=== PATIENT | female | born 1985 | race Caucasian/White ===

== ENCOUNTER 2019-03-09 18:03 | Emergency (ER) | payer MEDICAID ==
[2019-03-09] MEDS ORDERED: Prochlorperazine 5 MG Tab PO ONE (18:04)
[2019-03-09] MEDS ORDERED: Acetaminophen/HYDROcodone 325-5 MG Tab PO ONE (18:04)
[2019-03-09] MEDS ORDERED: Sodium Chloride 0.9% 10 ML Syringe FLUSH PRN (18:34)
--- NOTE | 2019-03-09 18:34 | EDM.PDOC ---
ED HPI GENERAL MEDICAL PROBLEM - General Chief Complaint: Gastrointestinal Problem Stated Complaint: CONSTIPATION Time Seen by Provider: 03/09/19 18:18 Source of Information: Reports: Patient History Limitations: Reports: No Limitations - History of Present Illness INITIAL COMMENTS - FREE TEXT/NARRATIVE: 33-year-old female with onset of crampy lower abdominal pain this morning that has progressively worsened. It now is generalized all over her abdomen. She also has pain in her lower back as well. She has had nausea with vomiting 2. Her last bowel movement was 2 days ago and it was small and hard. She does have a history of constipation problems and she has taken several medications for constipation today including Ex-Lax, MiraLAX and mag citrate. She was having the pain and nausea prior to taking these medications. She has had no fevers or chills. She's had no dysuria or hematuria. She has had really no appetite. She has never had pain like this before. The pain is a 9/10. It is cramping and sharp. It does seem to wax and wane but there is a constant underlying pain as well. It does seem to emanate from her lower abdomen. Her last menstrual period was a month ago but her menses is irregular. Denies any possibility of . She was hospitalized in [place] about 2 weeks ago for a respiratory infection. She still has a cough related to that but no difficulty breathing. There are no other associated signs or symptoms. There are no other modifying factors. 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 Medication(s) (As noted above) abdomen Pain Score (Numeric/FACES): 9 - Related Data Allergies Allergy/AdvReac Type Severity Reaction Status Date / Time bee venom protein (honey bee) Allergy Hives Verified 03/09/19 18:16 Penicillins Allergy Hives Verified 03/09/19 18:16 Home Meds: Home Meds QUEtiapine [SEROquel] 300 mg PO BEDTIME 03/09/19 [History] Sertraline [Zoloft] 200 mg PO DAILY 03/09/19 [History] Sulfamethoxazole/Trimethoprim [Bactrim Ds Tablet] 1 each PO BID 10 Days #20 tablet 03/09/19 [Rx] busPIRone [Buspar] 15 mg PO DAILY 03/09/19 [History] metroNIDAZOLE [Flagyl] 500 mg PO BID 10 Days #20 tab 03/09/19 [Rx] traZODone 200 mg PO DAILY 03/09/19 [History] Past Medical History Psychiatric History: Reports: Anxiety, Depression - Past Surgical History GI Surgical History: Reports: Appendectomy Musculoskeletal Surgical History: Reports: ORIF (Of left elbow) Social & Family History - Tobacco Use Smoking Status *Q: Current Every Day Smoker Years of Tobacco use: 17 Packs/Tins Daily: 0.5 - Caffeine Use Caffeine Use: Reports: Energy Drinks, Soda - Alcohol Use Alcohol Use History: No - Recreational Drug Use Recreational Drug Use: No - Living Situation & Occupation Occupation: Employed (She does surveys over the phone) Social History Comment: She is here with her father. ED ROS GENERAL - Review of Systems Review Of Systems: See Below Constitutional: Reports: No Symptoms HEENT: Reports: No Symptoms Respiratory: Reports: Cough Cardiovascular: Reports: No Symptoms Endocrine: Reports: No Symptoms GI/Abdominal: Reports: Abdominal Pain, Nausea, Vomiting : Reports: No Symptoms Musculoskeletal: Reports: Back Pain (Lower back pain) Skin: Reports: No Symptoms Neurological: Reports: No Symptoms Hematologic/Lymphatic: Reports: No Symptoms Immunologic: Reports: No Symptoms ED EXAM, GI/ABD - Physical Exam Exam: See Below Exam Limited By: No Limitations General Appearance: Alert, Moderate Distress, Obese Eyes: Bilateral: Normal Appearance, EOMI Ears: Normal External Exam Nose: Normal Inspection, Normal Mucosa, No Blood Throat/Mouth: Normal Voice, No Airway Compromise, Other (Dry mucous membranes) Head: Atraumatic, Normocephalic Neck: Normal Inspection, Supple, Non-Tender, Full Range of Motion Respiratory/Chest: No Respiratory Distress, Lungs Clear, Normal Breath Sounds, No Accessory Muscle Use, Chest Non-Tender Cardiovascular: Normal Peripheral Pulses, Regular Rate, Rhythm, No JVD GI/Abdominal Exam: Soft, No Mass, Tender (Diffusely tender but more so in her lower abdomen), Abnormal Bowel Sounds (Bowel sounds are somewhat increased). No : Guarding, Rebound Back Exam: Normal Inspection Extremities: Normal Inspection, Normal Range of Motion, Non-Tender, No Pedal Edema, Normal Capillary Refill Neurological: Alert, Oriented, CN II-XII Intact, Normal Cognition, No Motor/ Sensory Deficits Skin Exam: Warm, Dry, Intact, Normal Color Course - Vital Signs Last Recorded V/S: Last Vital Signs Temp 37.2 C 03/09/19 18:15 Pulse 95 03/09/19 18:15 Resp 16 03/09/19 18:15 BP 121/81 03/09/19 18:15 Pulse Ox 97 03/09/19 18:15 - Orders/Labs/Meds Orders: Active Orders 24 hr Category Date Time Status Abdomen Pelvis w Cont [CT] Stat Exams 03/09/19 20:14 Taken Chest 2V [CR] Stat Exams 03/09/19 19:35 Taken Sodium Chloride 0.9% [Normal Saline] 1,000 ml Med 03/09/19 20:15 Active IV ASDIRECTED Sodium Chloride 0.9% [Saline Flush] Med 03/09/19 18:34 Active 10 ml FLUSH ASDIRECTED PRN Peripheral IV Insertion Adult [OM.PC] Routine Oth 03/09/19 18:34 Ordered Medication Orders Sodium Chloride (Normal Saline) 1,000 mls @ 200 mls/hr IV ASDIRECTED CAROLINE Last Admin: 03/09/19 20:50 Dose: 200 mls/hr Sodium Chloride (Saline Flush) 10 ml FLUSH ASDIRECTED PRN PRN Reason: Keep Vein Open Last Admin: 03/09/19 18:45 Dose: 10 ml Labs: Laboratory Tests 03/09/19 03/09/19 03/09/19 Range/Units 18:34 18:34 18:50 WBC 15.2 H (4.5-12.0) X10-3/uL RBC 5.07 (3.23-5.20) x10(6)uL Hgb 15.1 (11.5-15.5) g/dL Hct 44.1 (30.0-51.3) % MCV 86.9 (80-96) fL MCH 29.8 (27.7-33.6) pg MCHC 34.2 (32.2-35.4) g/dL RDW 14.8 (11.5-15.5) % Plt Count 318 (125-369) X10(3)uL MPV 9.1 (7.4-10.4) fL Neut % (Auto) 75.8 (46-82) % Lymph % (Auto) 18.5 (13-37) % [place] % (Auto) 5.4 (4-12) % Eos % (Auto) 0 L (1.0-5.0) % Baso % (Auto) 0 (0-2) % Neut # (Auto) 11.6 H (1.6-8.3) # Lymph # (Auto) 2.8 (0.6-5.0) # [place] # (Auto) 0.8 (0.0-1.3) # Eos # (Auto) 0.0 (0.0-0.8) # Baso # (Auto) 0.0 (0.0-0.2) # Sodium (135-145) mmol/L Potassium (3.5-5.3) mmol/L Chloride (100-110) mmol/L Carbon Dioxide (21-32) mmol/L BUN (7-18) mg/dL Creatinine (0.55-1.02) mg/dL Est Cr Clr Drug Dosing mL/min Estimated GFR (MDRD) (>60) BUN/Creatinine Ratio (9-20) Glucose (80-116) mg/dL Calcium (8.6-10.2) mg/dL Total Bilirubin (0.1-1.3) mg/dL AST (5-25) IU/L ALT (12-36) U/L Alkaline Phosphatase (56-112) IU/L C-Reactive Protein (0.5-0.9) mg/dL Total Protein (6.0-8.0) g/dL Albumin (3.5-5.2) g/dL Globulin g/dL Albumin/Globulin Ratio Amylase (25-115) U/L Urine Color Yellow (YELLOW) Urine Appearance Clear (CLEAR) Urine pH 6.0 (5.0-6.5) Ur Specific [place] 1.020 (1.010-1.025) Urine Protein Negative (NEGATIVE) mg/dL Urine Glucose (UA) Normal (NORMAL) mg/dL Urine Ketones Negative (NEGATIVE) mg/dL Urine Occult Blood Negative (NEGATIVE) Urine Nitrite Negative (NEGATIVE) Urine Bilirubin Small H (NEGATIVE) Urine Urobilinogen 1 H (NEGATIVE) mg/dL Ur Leukocyte Esterase Small H (NEGATIVE) Urine RBC 0-5 (0-5) Urine WBC 0-5 (0-5) Ur Squamous Epith Cells Occasional (NS,R,O) Amorphous Sediment Few Urine Bacteria Rare H (NS) Urine HCG, Qual Negative (NEGATIVE) 03/09/19 03/09/19 Range/Units 18:50 18:50 WBC (4.5-12.0) X10-3/uL RBC (3.23-5.20) x10(6)uL Hgb (11.5-15.5) g/dL Hct (30.0-51.3) % MCV (80-96) fL MCH (27.7-33.6) pg MCHC (32.2-35.4) g/dL RDW (11.5-15.5) % Plt Count (125-369) X10(3)uL MPV (7.4-10.4) fL Neut % (Auto) (46-82) % Lymph % (Auto) (13-37) % [place] % (Auto) (4-12) % Eos % (Auto) (1.0-5.0) % Baso % (Auto) (0-2) % Neut # (Auto) (1.6-8.3) # Lymph # (Auto) (0.6-5.0) # [place] # (Auto) (0.0-1.3) # Eos # (Auto) (0.0-0.8) # Baso # (Auto) (0.0-0.2) # Sodium 138 (135-145) mmol/L Potassium 3.8 (3.5-5.3) mmol/L Chloride 101 (100-110) mmol/L Carbon Dioxide 27 (21-32) mmol/L BUN 12 (7-18) mg/dL Creatinine 1.0 (0.55-1.02) mg/dL Est Cr Clr Drug Dosing 73.51 mL/min Estimated GFR (MDRD) > 60 (>60) BUN/Creatinine Ratio 12.0 (9-20) Glucose 103 (80-116) mg/dL Calcium 8.8 (8.6-10.2) mg/dL Total Bilirubin 0.3 (0.1-1.3) mg/dL AST 13 (5-25) IU/L ALT 25 (12-36) U/L Alkaline Phosphatase 86 (56-112) IU/L C-Reactive Protein 2.3 H (0.5-0.9) mg/dL Total Protein 7.7 (6.0-8.0) g/dL Albumin 3.6 (3.5-5.2) g/dL Globulin 4.1 g/dL Albumin/Globulin Ratio 0.9 Amylase 50 (25-115) U/L Urine Color (YELLOW) Urine Appearance (CLEAR) Urine pH (5.0-6.5) Ur Specific [place] (1.010-1.025) Urine Protein (NEGATIVE) mg/dL Urine Glucose (UA) (NORMAL) mg/dL Urine Ketones (NEGATIVE) mg/dL Urine Occult Blood (NEGATIVE) Urine Nitrite (NEGATIVE) Urine Bilirubin (NEGATIVE) Urine Urobilinogen (NEGATIVE) mg/dL Ur Leukocyte Esterase (NEGATIVE) Urine RBC (0-5) Urine WBC (0-5) Ur Squamous Epith Cells (NS,R,O) Amorphous Sediment Urine Bacteria (NS) Urine HCG, Qual (NEGATIVE) Meds: Medications Generic Name Dose Route Start Last Admin Trade Name Freq PRN Reason Stop Dose Admin Sodium Chloride 1,000 mls @ 200 mls/hr 03/09/19 20:15 03/09/19 20:50 Normal Saline IV 200 mls/hr ASDIRECTED CAROLINE Administration Sodium Chloride 10 ml 03/09/19 18:34 03/09/19 18:45 Saline Flush FLUSH 10 ml ASDIRECTED PRN Administration Keep Vein Open Discontinued Medications Generic Name Dose Route Start Last Admin Trade Name Freq PRN Reason Stop Dose Admin Fentanyl 50 mcg 03/09/19 18:35 03/09/19 18:55 Sublimaze IVPUSH 03/09/19 18:36 50 mcg ONETIME ONE Administration Promethazine HCl 25 mg/ Sodium 51 mls @ 200 mls/hr 03/09/19 18:36 03/09/19 18 :57 Chloride IV 03/09/19 18:51 200 mls/hr ONETIME ONE Administration Sodium Chloride 1,000 mls @ 999 mls/hr 03/09/19 18:35 03/09/19 18:50 Normal Saline IV 03/09/19 19:35 999 mls/hr .BOLUS ONE Administration Iopamidol 114 ml 03/09/19 20:22 03/09/19 20:54 Isovue-370 (76%) IV 03/09/19 20:23 114 ml ONETIME ONE Administration Metronidazole 500 mg 03/09/19 21:24 03/09/19 21:32 Flagyl PO 03/09/19 21:25 500 mg ONETIME ONE Administration Trimethoprim/Sulfamethoxazole 1 tab 03/09/19 21:24 03/09/19 21:32 Septra Ds PO 03/09/19 21:25 1 tab ONETIME ONE Administration - Radiology Interpretation Free Text/Narrative:: Chest x-ray PA and lateral shows no acute disease. CT scan of abdomen and pelvis shows mild wall thickening of a long segment of the mid descending colon that is consistent with mild infectious/inflammatory colitis. - Re-Assessments/Exams Free Text/Narrative Re-Assessment/Exam: 03/09/19 20:10: Patient has received 1 L bolus of normal saline, fentanyl 50 g and Phenergan 25 mg IV. She has just had a loose stool and her abdominal pain is less. She has remained vitally stable and afebrile. She still has abdominal pain on palpation but maintains with a soft abdomen. Her urinalysis shows no evidence of an acute infectious process. Her chest x-ray shows no acute disease. Her laboratory tests show an elevated white blood cell count and an elevated CRP. Therefore, I am sending her over for a CT of her abdomen and pelvis with IV contrast. I discussed this with the patient and she is in agreement with this plan. I will continue IV fluid hydration with normal saline. 03/09/19 21:25: CT scan of the abdomen and pelvis showed infectious colitis of the mid descending colon. The patient is much improved after IV fluids. I will place patient on Bactrim and Flagyl by mouth twice daily for the next 10 days. She is to increase her fluid intake. I will also provide her with a prescription for nausea and a take home pack of hydrocodone for more severe pain. She is to follow-up with her primary doctor this next week for recheck. I have cautioned her against the use of laxatives and in the future she should only use MiraLAX she has any problems with constipation. Departure - Departure Time of Disposition: 21:35 Disposition: Home, Self-Care 01 Condition: Good Clinical Impression: Infectious colitis, Dehydration - Discharge Information Prescriptions: metroNIDAZOLE [Flagyl] 500 mg PO BID 10 Days #20 tab Sulfamethoxazole/Trimethoprim [Bactrim Ds Tablet] 1 each PO BID 10 Days #20 tablet Instructions: Dehydration, Adult, [id number], Colitis Referrals: Anabela Eid NP [Nurse Practitioner] - Forms: ED Department Discharge Additional Instructions: You have a colitis or an inflammation or infection to your descending colon. You should drink plenty of fluids. You should rest. Medication as prescribed ( Bactrim DS, Flagyl 500 mg). You should take probiotics or eat yogurt daily you are on the antibiotics. I did give you a take-home pack of pain medication and antinausea medication (hydrocodone 5/325, Compazine 5 mg). You may also take ibuprofen as needed for pain. Follow-up with your primary doctor this next week. I have referred you to Anabela Eid NP. They should call you with an appointment to be seen for next week. Back to the emergency department for high fever, unrelenting vomiting, marked increase in abdominal pain, inability to keep liquids down or any other concerning sign or symptom. - My Orders Last 24 Hours: My Active Orders 03/09/19 18:34 Sodium Chloride 0.9% [Saline Flush] 10 ml FLUSH ASDIRECTED PRN Peripheral IV Insertion Adult [OM.PC] Routine 03/09/19 19:35 Chest 2V [CR] Stat 03/09/19 20:14 Abdomen Pelvis w Cont [CT] Stat 03/09/19 20:15 Sodium Chloride 0.9% [Normal Saline] 1,000 ml IV ASDIRECTED - Assessment/Plan Last 24 Hours: My Active Orders 03/09/19 18:34 Sodium Chloride 0.9% [Saline Flush] 10 ml FLUSH ASDIRECTED PRN Peripheral IV Insertion Adult [OM.PC] Routine 03/09/19 19:35 Chest 2V [CR] Stat 03/09/19 20:14 Abdomen Pelvis w Cont [CT] Stat 03/09/19 20:15 Sodium Chloride 0.9% [Normal Saline] 1,000 ml IV ASDIRECTED
[2019-03-09] MEDS ORDERED: fentaNYL 100 MCG/2 ML SDV IVPUSH ONE (18:35)
[2019-03-09] MEDS ORDERED: Sodium Chloride 0.9% 1,000 ML IV ONE (18:35)
[2019-03-09] MEDS ORDERED: Promethazine 25 MG in Sodium Chloride 0.9% 50 ML IV ONE (18:36)
[2019-03-09] MEDS ORDERED: Sodium Chloride 0.9% 1,000 ML IV SCH (20:15)
[2019-03-09] MEDS ORDERED: Iopamidol 755 MG/ML 150 ML Bottle IV ONE (20:22)
[2019-03-09] MEDS ORDERED: Sulfamethoxazole/Trimethoprim 800-160 MG Tab PO ONE (21:24)
[2019-03-09] MEDS ORDERED: metroNIDAZOLE 500 MG Tab PO ONE (21:24)
== END 2019-03-09 21:44 | disposition home or self-care (01) ==
LOC: FB.ED 18:03
DX: A09 Infectious gastroenteritis and colitis, unspecified (principal); E86.0 Dehydration; F41.9 Anxiety disorder, unspecified; F32.9 Major depressive disorder, single episode, unspecified; F17.210 Nicotine dependence, cigarettes, uncomplicated; Z91.030 Bee allergy status; Z88.0 Allergy status to penicillin; Z79.899 Other long term (current) drug therapy; Z90.49 Acquired absence of other specified parts of digestive tract
CPT/HCPCS: 36415; 71046; 74177; 80053; 81001; 81025; 82150; 85025; 86140; 96361; 96374; 99284-25; A9270-GY; J2550; J3010; J7030; J7050; Q9967

== ENCOUNTER 2020-03-17 20:07 | Emergency (ER) | payer MEDICAID ==
[2020-03-17] MEDS ORDERED: methylPREDNISolone Sodium Succinate 125 MG/2 ML SDV IM ONE (21:36)
[2020-03-17] MEDS ORDERED: Acetaminophen 500 MG Tab PO ONE (22:14)
[2020-03-17] MEDS ORDERED: Ibuprofen 800 MG Tab PO ONE (22:15)
--- NOTE | 2020-03-17 22:20 | EDM.PDOC ---
ED HPI GENERAL MEDICAL PROBLEM - General Chief Complaint: Respiratory Problem Stated Complaint: COUGH Time Seen by Provider: 03/17/20 21:10 Source of Information: Reports: Patient History Limitations: Reports: No Limitations - History of Present Illness INITIAL COMMENTS - FREE TEXT/NARRATIVE: c/o cough x 1w pt seen at [facility] clinic 1w ago for cough, CxR and labs done, dx with LLL pneumonia, tx with azithro and cefuroxime, no steroids has alb HFA, using q4-6h prn given Advair 1m ago and has been using no nebs at home has h/o asthma smokes 1/2 ppd cigs, no THC on disability, has bipolar, taking her Rx meds live local x 4d with father, sister and 2 nieces. None are ill. Had been babysitting earlier in [place] with mikaela, his , infant, 2 nieces, 1 nephew. 4 in that household now have cough and fever, none have been COVID tested pt with neg COVID test 1m ago cough nonproductive, HFAs help has had inc'd myalgias today which is current concern, cough slightly better, not taken NSAID or APAP bodyaching Pain Score (Numeric/FACES): 6 - Related Data Allergies Allergy/AdvReac Type Severity Reaction Status Date / Time bee venom protein (honey bee) Allergy Hives Verified 03/09/19 18:16 Penicillins Allergy Hives Verified 03/09/19 18:16 Home Meds: Home Meds QUEtiapine [SEROquel] 300 mg PO BEDTIME 03/09/19 [History] Sertraline [Zoloft] 200 mg PO DAILY 03/09/19 [History] Sulfamethoxazole/Trimethoprim [Bactrim Ds Tablet] 1 each PO BID 10 Days #20 tablet 03/09/19 [Rx] busPIRone [Buspar] 15 mg PO DAILY 03/09/19 [History] metroNIDAZOLE [Flagyl] 500 mg PO BID 10 Days #20 tab 03/09/19 [Rx] traZODone 200 mg PO DAILY 03/09/19 [History] Levofloxacin [Levaquin] 500 mg PO DAILY #6 tablet 03/17/20 [Rx] predniSONE 20 mg PO DAILY #9 tab 03/17/20 [Rx] Past Medical History Respiratory History: Reports: Bronchitis, Recurrent, Pneumonia, Recurrent Psychiatric History: Reports: Anxiety, Depression - Past Surgical History GI Surgical History: Reports: Appendectomy Musculoskeletal Surgical History: Reports: ORIF Social & Family History - Family History Family Medical History: Noncontributory - Tobacco Use Smoking Status *Q: Current Every Day Smoker Years of Tobacco use: 10 Packs/Tins Daily: 0.5 - Caffeine Use Caffeine Use: Reports: Energy Drinks, Soda - Living Situation & Occupation Occupation: Employed (She does surveys over the phone) ED ROS GENERAL - Review of Systems Review Of Systems: See Below Constitutional: Reports: Other (felt warm at home, does not have thermometer) HEENT: Reports: No Symptoms Respiratory: Reports: Shortness of Breath, Wheezing, Cough. Denies: Pleuritic Chest Pain, Sputum Cardiovascular: Reports: No Symptoms. Denies: Chest Pain Endocrine: Reports: No Symptoms GI/Abdominal: Reports: No Symptoms : Reports: No Symptoms Musculoskeletal: Reports: No Symptoms Skin: Reports: No Symptoms Neurological: Reports: No Symptoms Psychiatric: Reports: No Symptoms Hematologic/Lymphatic: Reports: No Symptoms Immunologic: Reports: No Symptoms ED EXAM, GENERAL - Physical Exam Exam: See Below Exam Limited By: No Limitations General Appearance: Alert, WD/WN, Mild Distress Eye Exam: Bilateral Eye: PERRL Nose: Normal Inspection, Normal Mucosa, No Blood Throat/Mouth: Normal Inspection, Normal Lips, Normal Teeth, Normal Gums, Normal Oropharynx Head: Atraumatic, Normocephalic Neck: Normal Inspection, Supple, Non-Tender. No: Lymphadenopathy (R), Lymphadenopathy (L) Respiratory/Chest: Other (freq hacking cough, wheeze and rhonchi at L base with cough, less so at R base, clear in other morales, fair AE, nontoxic, moves easily, no accessory muscles, no retractions, no purse lips) Cardiovascular: Regular Rate, Rhythm, No Edema, No Murmur, No Rub GI/Abdominal: Soft, Non-Tender, No Distention Back Exam: Normal Inspection, Full Range of Motion Extremities: Normal Inspection, Normal Range of Motion, Non-Tender, No Pedal Edema Neurological: Alert, Oriented, CN II-XII Intact, Normal Cognition, Normal Gait, No Motor/Sensory Deficits Psychiatric: Normal Affect Skin Exam: Warm, Dry, Normal Color, No Rash Lymphatic: No Adenopathy Course - Vital Signs Last Recorded V/S: Last Vital Signs Temp 37.8 C 03/17/20 20:07 Pulse 112 H 03/17/20 20:07 Resp 19 03/17/20 20:07 BP 115/57 L 03/17/20 20:07 Pulse Ox 93 L 03/17/20 20:07 - Orders/Labs/Meds Orders: Active Orders 24 hr Category Date Time Status Chest 1V Frontal [CR] Stat Exams 03/17/20 21:35 Ordered Labs: Laboratory Tests 03/17/20 03/17/20 03/17/20 Range/Units 21:45 21:45 21:45 WBC 22.4 H (4.5-12.0) X10-3/uL RBC 5.17 (3.23-5.20) x10(6)uL Hgb 15.1 (11.5-15.5) g/dL Hct 45.6 (30.0-51.3) % MCV 88.1 (80-96) fL MCH 29.2 (27.7-33.6) pg MCHC 33.1 (32.2-35.4) g/dL RDW 13.6 (11.5-15.5) % Plt Count 329 (125-369) X10(3)uL MPV 8.8 (7.4-10.4) fL Add Manual Diff Yes Neutrophils % (Manual) 76 (46-82) % Band Neutrophils % 1 (0-6) % Lymphocytes % (Manual) 20 (13-37) % Monocytes % (Manual) 3 L (4-12) % Sodium 139 (135-145) mmol/L Potassium 3.6 (3.5-5.3) mmol/L Chloride 100 (100-110) mmol/L Carbon Dioxide 29 (21-32) mmol/L BUN 12 (7-18) mg/dL Creatinine 1.3 H (0.55-1.02) mg/dL Est Cr Clr Drug Dosing 56.00 mL/min Estimated GFR (MDRD) 46 L (>60) BUN/Creatinine Ratio 9.2 (9-20) Glucose 94 (80-116) mg/dL Calcium 9.7 (8.6-10.2) mg/dL Total Bilirubin 0.4 (0.1-1.3) mg/dL AST 19 D (5-25) IU/L ALT 23 (12-36) U/L Alkaline Phosphatase 99 (56-112) IU/L C-Reactive Protein 3.8 H* (0.5-0.9) mg/dL Total Protein 8.5 H (6.0-8.0) g/dL Albumin 4.2 (3.5-5.2) g/dL Globulin 4.3 g/dL Albumin/Globulin Ratio 1.0 SARS Virus RNA (PCR) (NEGATIVE) 03/17/20 Range/Units 22:40 WBC (4.5-12.0) X10-3/uL RBC (3.23-5.20) x10(6)uL Hgb (11.5-15.5) g/dL Hct (30.0-51.3) % MCV (80-96) fL MCH (27.7-33.6) pg MCHC (32.2-35.4) g/dL RDW (11.5-15.5) % Plt Count (125-369) X10(3)uL MPV (7.4-10.4) fL Add Manual Diff Neutrophils % (Manual) (46-82) % Band Neutrophils % (0-6) % Lymphocytes % (Manual) (13-37) % Monocytes % (Manual) (4-12) % Sodium (135-145) mmol/L Potassium (3.5-5.3) mmol/L Chloride (100-110) mmol/L Carbon Dioxide (21-32) mmol/L BUN (7-18) mg/dL Creatinine (0.55-1.02) mg/dL Est Cr Clr Drug Dosing mL/min Estimated GFR (MDRD) (>60) BUN/Creatinine Ratio (9-20) Glucose (80-116) mg/dL Calcium (8.6-10.2) mg/dL Total Bilirubin (0.1-1.3) mg/dL AST (5-25) IU/L ALT (12-36) U/L Alkaline Phosphatase (56-112) IU/L C-Reactive Protein (0.5-0.9) mg/dL Total Protein (6.0-8.0) g/dL Albumin (3.5-5.2) g/dL Globulin g/dL Albumin/Globulin Ratio SARS Virus RNA (PCR) Negative (NEGATIVE) Meds: Medications Discontinued Medications Generic Name Dose Route Start Last Admin Trade Name Freq PRN Reason Stop Dose Admin Acetaminophen 1,000 mg 03/17/20 22:14 03/17/20 22:24 Tylenol Extra Strength PO 03/17/20 22:15 1,000 mg ONETIME ONE Administration Cyclobenzaprine HCl 10 mg 03/17/20 22:33 03/17/20 22:38 Flexeril PO 03/17/20 22:34 10 mg ONETIME ONE Administration Ibuprofen 800 mg 03/17/20 22:15 03/17/20 22:24 Motrin PO 03/17/20 22:16 800 mg ONETIME ONE Administration Methylprednisolone Sodium Succinate 125 mg 03/17/20 21:36 03/17/20 21:43 Solu-Medrol IM 03/17/20 21:37 125 mg ONETIME ONE Administration - Re-Assessments/Exams Free Text/Narrative Re-Assessment/Exam: 03/17/20 23:19 there was a small horizontal marking in the LLL on XR 8d ago in [place], that has now cleared WBC inc'd 15k 8d ago to 22k now, however no shift present pt reports q3m chest CT for small nodules behind the sternum, her father reports a h/o sarcoid in family, pt does see a lead web developer in [place] suspect persistent bronchitis (PO 95% on d/c on RA) exacerbated by ongoing smoking will swith antbx from cefuroxime to levoflox, increase freq alb HFAs, add prednisone pt agrees to close f/u with either lead web developer or local PCP pt ambulating, moves easily, does not appear ill or toxic despite WBC 22k Departure - Departure Time of Disposition: 23:08 Disposition: Home, Self-Care 01 Condition: Good Clinical Impression: Acute bronchitis, Leukocytosis, Wheezing - Discharge Information *PRESCRIPTION DRUG MONITORING PROGRAM REVIEWED*: Not Applicable *COPY OF PRESCRIPTION DRUG MONITORING REPORT IN PATIENT LUISA: Not Applicable Prescriptions: Levofloxacin [Levaquin] 500 mg PO DAILY #6 tablet predniSONE 20 mg PO DAILY #9 tab Instructions: Chronic Obstructive Pulmonary Disease Exacerbation, [id number] Forms: ED Department Discharge Additional Instructions: Stop the cefuroxime. In its place, for infection, take levofloxacin 500 mg 1 tab daily for 6 days. For wheezing, take prednisone 20 mg 2 tab for 2 days, then 1 tab daily for 5 days. For wheezing, use albuterol inhaler 2 puffs every 3 hours. For wheezing, continue Advair. For fever and pain, take ibuprofen 200 mg 3 tabs and/or acetaminophen 500 mg 2 tabs 4 times a day for the next several days. Maintain fluids. Get adequate rest. See your lead web developer in 3-4 days. Take a print out of your labs with you. If you cannot get in to see your lead web developer, see your local physician in the 2-3 days for repeat CBC and additional evaluation and recommendations. Return to ED if you are feeling worse. Sepsis Event Note (ED) - Evaluation Sepsis Screening Result: No Definite Risk - Focused Exam Vital Signs: Vital Signs Temp Pulse Resp BP Pulse Ox 03/17/20 20:07 37.8 C 112 H 19 115/57 L 93 L - My Orders Last 24 Hours: My Active Orders 03/17/20 21:35 Chest 1V Frontal [CR] Stat - Assessment/Plan Last 24 Hours: My Active Orders 03/17/20 21:35 Chest 1V Frontal [CR] Stat
[2020-03-17] MEDS ORDERED: Cyclobenzaprine 10 MG Tab PO ONE (22:33)
[2020-03-17] MEDS ORDERED: Levofloxacin 500 MG Tab PO ONE (23:09)
--- NOTE | 2020-03-19 10:41 | CR ---
INDICATION: Cough, fever, wheeze times one week despite antibiotics times two. Bronchial wall thickening and peribronchiolar consolidation left lower lung consistent with bronchitis diagnosed on previous chest x-ray from [facility] 03/12/20. CHEST, ONE VIEW: AP upright portal view of the chest was obtained 03/17/20 and compared with 03/12/20. Linear density at the lower mid lung field laterally on the left is not clearly visualized at this time. Detail is less than ideal due to the portable nature of this examination and relatively poor inspiration. The possibility of infiltrate at the right medial lung base is difficult to exclude. No consolidating pneumonia is identified on the left. However, there is bilateral bronchial wall cuffing of moderate to moderately severe degree which may be on the basis of significant degree of bronchitis or other peribronchial disease process. The heart did not appear enlarged - mediastinum was unremarkable. IMPRESSION: Bilateral bronchial wall cuffing at the lower lung morales may be more prominent than on the previous examination. It is also difficult to exclude some consolidating pneumonia at the medial right lung base. MTDD
== END 2020-03-17 23:24 | disposition home or self-care (01) ==
LOC: FB.ED 20:07
DX: J20.9 Acute bronchitis, unspecified (principal); D72.829 Elevated white blood cell count, unspecified; Z20.828 Contact with and (suspected) exposure to other viral communicable diseases; J45.909 Unspecified asthma, uncomplicated; F41.9 Anxiety disorder, unspecified; F31.9 Bipolar disorder, unspecified; Z91.030 Bee allergy status; Z88.0 Allergy status to penicillin; F17.210 Nicotine dependence, cigarettes, uncomplicated
CPT/HCPCS: 36415; 71045; 80053; 85025; 86140; 96372; 99285-25; A9270-GY; J2930; U0002

== ENCOUNTER 2023-04-21 22:48 | Emergency (ER) | payer MEDICAID ==
[2023-04-21] MEDS ORDERED: Sodium Chloride 0.9% 1,000 ML IV ONE (23:54)
[2023-04-21] MEDS ORDERED: Prochlorperazine 10 MG/2 ML SDV IVPUSH ONE (23:54)
[2023-04-21] MEDS ORDERED: Sodium Chloride 0.9% 10 ML Syringe FLUSH PRN (23:54)
[2023-04-21] MEDS ORDERED: diphenhydrAMINE 50 MG/ML SDV IVPUSH ONE (23:54)
[2023-04-22 00:07] LABS: EOSINOPHILS PERCENT AUTO 0.1 % (0.6-8.1)
[2023-04-22 00:09] LABS: BASOPHILS ABSOLUTE AUTO 0.1 x10-3/uL (0.0-0.1); BASOPHILS PERCENT AUTO 0.7 % (0.2-1.5); HEMATOCRIT 44.8 % (34.2-48.2); HEMOGLOBIN 15.2 g/dL (11.4-15.5); LYMPHOCYTES ABSOLUTE AUTO 3.2 x10-3/uL (1.0-4.4); LYMPHOCYTES PERCENT AUTO 29.2 % (18.4-52.1); MEAN CORPUSCULAR HEMOGLOBIN 29.6 pg (23.9-33.9); MEAN CORPUSCULAR VOLUME 87.3 fL (76.7-100.5); MEAN PLATELET VOLUME 9.5 fL (7.1-12.4); MONOCYTES PERCENT AUTO 8.8 % (4.4-15.7); NEUTROPHILS ABSOLUTE AUTO 6.7 x10-3/uL (1.5-6.3); NEUTROPHILS PERCENT AUTO 61.2 % (30.8-76.2); PLATELET COUNT,PLT 309 x10(3)uL (151-488); RED BLOOD CELL COUNT 5.13 x10(6)uL (3.60-5.20); RED CELL DISTRIBUTION WIDTH 14.8 % (12.3-16.5); WHITE BLOOD CELL COUNT,WBC 10.9 x10-3/uL (3.0-10.3)
[2023-04-22 00:13] LABS: BLOOD UREA NITROGEN,BUN 7 mg/dL (7-18); CALCIUM 9.1 mg/dL (8.6-10.2); CARBON DIOXIDE,CO2 28 mmol/L (21-32); CHLORIDE,CL 103 mmol/L (100-110); EST CRCL DRUG DOSING (CG) 73.45 mL/min; ESTIMATED GFR 73 mL/min (>60); GLUCOSE RANDOM 88 mg/dL (80-116); POTASSIUM,K 3.7 mmol/L (3.5-5.3); SODIUM,NA 139 mmol/L (135-145)
[2023-04-22 00:19] LABS: A/G RATIO 1.2; ALANINE AMINOTRANSFERASE,ALT 27 U/L (12-36); ALKALINE PHOSPHATASE 80 IU/L (56-112); ASPARTATE AMNIOTRANSFERASE,AST 19 IU/L (5-25); BILIRUBIN TOTAL 0.3 mg/dL (0.1-1.3); MAGNESIUM 1.9 mg/dL (1.8-2.5); PROTEIN TOTAL,TP 7.3 g/dL (6.0-8.0)
[2023-04-22 00:24] LABS: BILIRUBIN,URINE NEGATIVE (NEGATIVE); GLUCOSE,URINE NORMAL (NORMAL); KETONES,URINE 15 mg/dL (NEGATIVE); LEUKOCYTE ESTERASE,URINE NEGATIVE (NEGATIVE); NITRITE,URINE NEGATIVE (NEGATIVE); OCCULT BLOOD,URINE NEGATIVE (NEGATIVE); PROTEIN,URINE NEGATIVE (NEGATIVE); UROBILINOGEN,URINE NORMAL (NEGATIVE)
[2023-04-22 00:31] LABS: APPEARANCE,URINE CLEAR (CLEAR); COLOR,URINE YELLOW (YELLOW); RBC,URINE 0-5 (0-5); SQUAMOUS EPITHELIAL CELLS,UR OCCASIONAL (NS,R,O); WBC,URINE 0-5 (0-5)
[2023-04-22 00:32] LABS: BACTERIA,URINE OCCASIONAL (NS)
[2023-04-22 00:33] LABS: C-REACTIVE PROTEIN 0.74 mg/dL (<0.33)
[2023-04-22 00:34] LABS: SEDIMENTATION RATE MANUAL 5 mm/hr (0-20)
[2023-04-22] MEDS ORDERED: LORazepam 2 MG/ML SDV IVPUSH ONE (00:47)
[2023-04-22] MEDS ORDERED: Ketorolac 30 MG/ML SDV IVPUSH ONE (00:47)
== END 2023-04-22 01:54 | disposition home or self-care (01) ==
LOC: FB.ED 22:48
DX: G43.911 Migraine, unspecified, intractable, with status migrainosus (principal); E86.0 Dehydration; J44.9 Chronic obstructive pulmonary disease, unspecified; F17.200 Nicotine dependence, unspecified, uncomplicated; Z91.030 Bee allergy status; Z88.0 Allergy status to penicillin; Z88.8 Allergy status to other drugs, medicaments and biological substances
CPT/HCPCS: 36415; 80053; 81001; 83690; 83735; 85025; 85651; 86140; 96361; 96374; 96375; 99283; 99284-25; J0780; J1200; J1885; J2060; J7030